=== PATIENT | female | born 1995 | race Asian ===

== ENCOUNTER 2017-03-11 12:28 | Emergency (ER) | payer BC ==
[~2017-03-11] VITALS: Ht 157.5 cm; Wt 74.0 kg
[2017-03-11 12:29] VITALS: Ht 157.5 cm; Wt 74.0 kg
[2017-03-11] MEDS ORDERED: ONDANSETRON 4 MG INJ IV STA (12:43)
[2017-03-11] MEDS ORDERED: BELLADONNA/PHENOBARBITAL TAB PO STA (12:43)
[2017-03-11] MEDS ORDERED: FAMOTIDINE 20 MG INJ IV STA (12:43)
[2017-03-11] MEDS ORDERED: LIDOCAINE/MYLANTA 40 ML BTL PO STA (12:43)
--- NOTE | 2017-03-11 13:31 | RADRPT ---
PROCEDURE: US Abdomen (right upper quadrant). CLINICAL INDICATION: Right upper quadrant abdomen pain. TECHNIQUE: Multiple real-time longitudinal and transverse images of the right upper quadrant of th e abdomen were acquired utilizing a curved array transducer. Images were reviewed on a high-resoluti on PACS workstation. COMPARISON: None FINDINGS: The liver is normal in size and normal in echogenicity. There is no focal hepatic lesion. Color Doppler and pulsed Doppler sonography demonstrate normal a ntegrade flow in the portal vein. The gallbladder is normal with no stones or wall thickening. There is no pericholecystic fluid jaguar ection. The bile ducts are normal with the common bile duct measuring 3.4 mm in diameter. The pancreas is unremarkable with no mass or fluid collection. No free fluid is present. The right kidney measures 9.4 x 4.2 x 5.5 cm. There is normal echogenicity of the right kidney. T here is no perinephric fluid collection. No hydronephrosis, mass, or calculus is seen. IMPRESSION: 1. Unremarkable right upper quadrant abdomen ultrasound. RPTAT: QQ .Korey Moncada MD, MD Date Time Electronically viewed and signed by .Korey Moncada MD, on 03/11/2017 13:31 .R/
[2017-03-11 13:33] LABS: ADD SCAN DIFF NO
[2017-03-11 13:35] LABS: BASOPHILS % 0.2 % (0.0-2.0); EOSINOPHILS # 0.1 10^3/ul (0.0-0.5); EOSINOPHILS % 0.8 % (0.0-7.0); HEMATOCRIT 36.3 % (37.0-47.0); HEMOGLOBIN 11.6 g/dl (12.0-16.0); LYMPHOCYTES # 2.5 10^3/ul (0.8-2.9); LYMPHOCYTES % 23.2 % (15.0-51.0); MEAN CORPUSCULAR HEMOGLOBIN 26.3 pg (29.0-33.0); MEAN CORPUSCULAR VOLUME 82.3 fl (82.0-101.0); MEAN PLATELET VOLUME 11.2 fl (7.4-10.4); MONOCYTE # 0.8 10^3/ul (0.3-0.9); NEUTROPHIL # 7.3 10^3/ul (1.6-7.5); NEUTROPHILS % 68.4 % (39.0-77.0); PLATELET COUNT 306 10^3/UL (140-415); RED BLOOD COUNT 4.41 10^6/ul (4.20-5.40); RED CELL DISTRIBUTION WIDTH 13.4 % (11.5-14.5); WHITE BLOOD COUNT 10.7 10^3/ul (4.8-10.8)
[2017-03-11 13:50] LABS: ADD UMIC NO; URINE BILIRUBIN (Dip) NEGATIVE (NEGATIVE); URINE BLOOD (Dip) NEGATIVE (NEGATIVE); URINE COLOR LT. YELLOW (YELLOW); URINE GLUCOSE (Dip) NEGATIVE (NEGATIVE); URINE KETONES (Dip) NEGATIVE (NEGATIVE); URINE LEUKOCYTE ESTERASE (Dip) NEGATIVE (NEGATIVE); URINE NITRITE (Dip) NEGATIVE (NEGATIVE); URINE TOTAL PROTEIN (Dip) NEGATIVE (NEGATIVE); URINE UROBILINOGEN (Dip) 0.2 E.U./dL (0.1-1.0)
[2017-03-11 13:53] LABS: ALBUMIN 4.4 g/dl (3.3-4.9); POTASSIUM 3.9 mmol/L (3.5-5.1)
[2017-03-11 13:55] LABS: BILIRUBIN,INDIRECT 0.4 mg/dl (0-1.1); BILIRUBIN,TOTAL 0.4 mg/dl (0.2-1.3); CREATININE 0.61 mg/dl (0.44-1.00)
[2017-03-11 13:56] LABS: ALBUMIN/GLOBULIN RATIO 1.22; CALCIUM 9.4 mg/dl (8.4-10.2)
--- NOTE | 2017-03-11 14:08 | RADRPT ---
PROCEDURE: CT Abdomen and Pelvis without contrast. CLINICAL INDICATION: Abdominal and pelvic pain. TECHNIQUE: CT scan of the abdomen and pelvis without contrast was performed. Coronal and sagittal reformatted images were obtained from the axial source images. Images were reviewed on a high-resolu [employer] PACS workstation. Total exam DLP is 530.08 mGy-cm. CTDIvol is 9.62 mGy. One or more of the fo [place] dose reduction techniques were used: Automated exposure control, adjustment of the mA and/or kV according to patient size, use of iterative reconstruction technique. COMPARISON: Right upper quadrant abdomen ultrasound done earlier the same day which was normal. FINDINGS: The lung bases are normal. There is no pleural effusion. The liver is normal in size and attenuation. There is no focal hepatic lesion. The gallbladder and bile ducts are normal. The spleen is normal in size. There is no focal splenic lesion. Both adrenals are normal with no enlargement or mass. The pancreas is unremarkable with no mass or evidence of pancreatitis. There is no renal mass or hydronephrosis. There is no renal calculus or ureteral calculus. The abdominal aorta is not dilated. There is no retroperitoneal lymphadenopathy or mass. There is a right adnexal solid mass measuring 4.9 x 3.9 cm in AP and transverse dimensions. There i s no other pelvic mass. The bladder and distal ureters are normal. The periappendiceal region is unremarkable with no evidence of appendicitis. The appendix is well se en and appears normal. The bowel and mesentery are normal. Moderate free fluid is present in the pelvis. There is no free air. The osseous structures are unremarkable with no fracture or lytic lesion. IMPRESSION: 1. Right adnexal solid mass measuring 4.9 x 3.9 cm. Correlation with pelvic ultrasound should be co nsidered. 2. Moderate free fluid in the pelvis. 3. No urinary tract calculus or hydronephrosis. 4. Normal appendix. 5. Otherwise unremarkable study. RPTAT: QQ .Korey Moncada MD, Date Time Electronically viewed and signed by .Korey Moncada MD, on 03/11/2017 14:07 .R/
--- NOTE | 2017-03-11 14:48 | RADRPT ---
PROCEDURE: Pelvic ultrasound. CLINICAL INDICATION: Pelvic pain, right adnexal mass TECHNIQUE: Alvarez scale, color doppler, spectral doppler ultrasound of the pelvis was performed with transabdominal and transvaginal transducers. COMPARISON: CT abdomen pelvis 03/11/2017 FINDINGS: Uterus: Position: Anteverted. Normal myometrial echogenicity. Normal appearance of the endometrium. Ovaries: Right ovary is enlarged containing a 3.3 cm echogenic lesion. Normal appearance of the left ovary. Bilateral ovarian blood flow is present. Free fluid: Trace amount Measurements: Endometrium: 1.3 cm Uterus: 8.5 x 4.4 x 6.6 cm Right ovary: 5.7 x 4.8 x 4.6 cm Left ovary: 2.7 x 1.3 x 2.0 cm IMPRESSION: Right ovary is mildly enlarged and contains a 3.3 cm echogenic lesion with appearance most suggestiv e of an ovarian dermoid. Follow-up pelvic ultrasound in 12 months suggested. Normal appearance of the uterus, endometrium, and left ovary. RPTAT: AADD .Renan Claros MD, MD Date Time Electronically viewed and signed by .Renan Claros MD, on 03/11/2017 14:48 .B/
[2017-03-11] MEDS ORDERED: HYDR-906 PO (15:05)
[2017-03-11] MEDS ORDERED: IBUP-1542 PO (15:05)
--- NOTE | 2017-03-11 16:58 | ERD ---
ER Documentation Chief Complaint Date/Time DATE: 03/11/17 TIME: 16:54 Chief Complaint nausea,constipation, generalized abdominal pain since last night HPI This is a 22-year-old female presents to the ER with generalized abdominal pain as described as sharp and severe. Patient states that she was having sexual intercourse last night when it started. Patient admits to bloating and some constipation. Patient did have a bowel movement this morning. She denies any vomiting or diarrhea she does admit to some nausea. Patient denies any urinary frequency or dysuria. She has not had any fevers or chills. She denies any vaginal discharge. Patient is currently sexually active with her boyfriend and uses condoms regularly. ROS 12 point review of systems was done, all negative except per HPI. Medications Home Meds Active Scripts Hydrocodone/Acetaminophen (Corona 5-325 Tablet) 1 Each Tablet, 1 TAB PO Q6H Y for PAIN, #10 TAB Prov:JHONATAN SCHMIDT 03/11/17 Ibuprofen* (Motrin*) 600 Mg Tab, 600 MG PO Q6, #30 TAB Prov:JHONATAN SCHMIDT 03/11/17 PMhx/Soc History of Surgery: No Anesthesia Reaction: No Hx Neurological Disorder: No Hx Respiratory Disorders: No Hx Cardiac Disorders: No Hx Psychiatric Problems: No Hx Miscellaneous Medical Probl: No Hx Alcohol Use: No Hx Substance Use: No Hx Tobacco Use: No Physical Exam Vitals Vital Signs Date Time Temp Pulse Resp B/P Pulse Ox O2 Delivery O2 Flow Rate FiO2 03/11/17 12:29 98.0 108 19 160/90 100 Physical Exam GENERAL: Patient is in significant distress secondary to abdominal pain. HEENT: Atraumatic CHEST: Clear to auscultation bilaterally. There are no rales, wheezes or rhonchi. HEART: Regular rate and rhythm. No murmurs, clicks, rubs or gallops. ABDOMEN: Soft nondistended. Patient is tender to palpation in all quadrants of the abdomen. Good bowel sounds. No rebound or guarding. No gross peritonitis. No gross organomegaly or masses. No Smith sign or McBurney point tenderness. BACK: No midline or flank tenderness. NEURO: Alert and oriented. SKIN: The skin is warm and dry. Result Diagram: 03/11/17 1300 03/11/17 1300 Results 24 hrs Laboratory Tests Test 03/11/17 13:00 White Blood Count 10.710^3/ul Red Blood Count 4.4110^6/ul Hemoglobin 11.6g/dl Hematocrit 36.3% Mean Corpuscular Volume 82.3fl Mean Corpuscular Hemoglobin 26.3pg Mean Corpuscular Hemoglobin Concent 32.0g/dl Red Cell Distribution Width 13.4% Platelet Count 79113^3/UL Mean Platelet Volume 11.2fl Neutrophils % 68.4% Lymphocytes % 23.2% Monocytes % 7.0% Eosinophils % 0.8% Basophils % 0.2% Nucleated Red Blood Cells % 0.0/100WBC Neutrophils # 7.310^3/ul Lymphocytes # 2.510^3/ul Monocytes # 0.810^3/ul Eosinophils # 0.110^3/ul Basophils # 0.010^3/ul Nucleated Red Blood Cells # 0.010^3/ul Urine Color LT. YELLOW Urine Clarity CLEAR Urine pH 5.5 Urine Specific [place] <=1.005 Urine Ketones NEGATIVE Urine Nitrite NEGATIVE Urine Bilirubin NEGATIVE Urine Urobilinogen 0.2 E.U./dL Urine Leukocyte Esterase NEGATIVE Urine Hemoglobin NEGATIVE Urine Glucose NEGATIVE% Urine Total Protein NEGATIVE Sodium Level 141mmol/L Potassium Level 3.9mmol/L Chloride Level 104mmol/L Carbon Dioxide Level 24mmol/L Anion Gap 17 Blood Urea Nitrogen 13mg/dl Creatinine 0.61mg/dl Glucose Level 114mg/dl Calcium Level 9.4mg/dl Total Bilirubin 0.4mg/dl Direct Bilirubin 0.00mg/dl Indirect Bilirubin 0.4mg/dl Aspartate Amino Transf (AST/SGOT) 22IU/L Alanine Aminotransferase (ALT/SGPT) 27IU/L Alkaline Phosphatase 54IU/L Total Protein 8.0g/dl Albumin 4.4g/dl Globulin 3.60g/dl Albumin/Globulin Ratio 1.22 Lipase 55U/L Current Medications Medications (Trade) Dose Ordered Sig/John Route PRN Reason Start Time Stop Time Status Last Admin Dose Admin Ondansetron HCl (Zofran Inj) 4 mg ONCE STAT IV 03/11/17 12:43 03/11/17 12:46 DC 03/11/17 13:06 Famotidine (Pepcid Iv) 20 mg ONCE STAT IV 03/11/17 12:43 03/11/17 12:46 DC 03/11/17 13:07 Miscellaneous Medication (Gi Cocktail (2)) 40 ml ONCE STAT PO 03/11/17 12:43 03/11/17 12:46 DC 03/11/17 13:07 Belladonna/ Phenobarbital () 2 tab ONCE STAT PO 03/11/17 12:43 03/11/17 12:46 DC 03/11/17 13:06 Simethicone (Mylicon) 160 mg ONCE ONCE PO 03/11/17 13:00 03/11/17 13:01 DC 03/11/17 14:02 Procedures/MDM Differential diagnosis includes but is not limited to appendicitis, hernia, UTI , constipation, ectopic , ovarian torsion, PID, Mittelschmerz, fibroid , GERD, gastritis, peptic ulcer disease, pancreatitis, cholecystitis, choledocholithiasis, biliary colic, cholangitis, Fvoy-[id number]-[id number], ACS/TN, Pnuemonia. This is a 22-year-old female presents to the ER with generalized abdominal pain. Patient did have a dermoid cyst. At this time there is no other abnormality found. Patient is afebrile and well-appearing. Patient will be sent home with Corona and ibuprofen. She is to follow-up with her [employer] as soon as possible. Patient is to return to ER sooner if symptoms worsen. My medical decision-making should with the patient she understands and agrees with plan. Departure Diagnosis: Primary Impression: Dermoid cyst Condition: Stable Patient Instructions: What Are Ovarian Cysts? Additional Instructions: Call your primary care doctor TOMORROW for an appointment during the next 1-2 days.See the doctor sooner or return here if your condition worsens before your appointment time. JHONATAN SCHMIDT March 11, 2017 16:58
== END 2017-03-11 15:17 | disposition home or self-care (01) ==
LOC: FTE 12:28
DX: D27.0 Benign neoplasm of right ovary (principal); R10.2 Pelvic and perineal pain
CPT/HCPCS: 36415; 74176; 76705; 76856; 80053; 81003; 83690; 85025; 96374; 96375; J2405; Z7502; Z7610

== ENCOUNTER 2018-09-02 08:28 | Emergency (ER) | END 2018-09-02 10:22 | disposition home or self-care (01) ==